=== PATIENT | female | born 1950 | race Two or more races ===

== ENCOUNTER → 2018-12-21 | Emergency (ER) | payer OTHER ==
[~2018-12-21] VITALS: Ht 180.3 cm; Wt 67.6 kg
[~2018-12-21] MED LIST: IV NS 0.9% 500 ML BAG IV ONE
--- NOTE | 2018-12-21 18:05 | NUR ---
PT LYNNE FROM GEN WEAKNESS, SOB WHILE DRIVING; PT AAOX4, -SOB, NAD NOTED, PT TO BED 5, VSS, PENDING MD ODELL
[2018-12-21 18:36] LABS: BASOPHILS % (AUTO) 0.4 % (0.0-2.0); EOSINOPHILS % (AUTO) 3.5 % (0.0-6.0); HEMATOCRIT 36 % (33-45); HEMOGLOBIN 12.3 g/dL (11.5-14.8); LYMPHOCYTES # (AUTO) 3.2 /CMM (0.8-4.8); LYMPHOCYTES % (AUTO) 41.6 % (20.0-44.0); MEAN CORPUSCULAR HGB CONC 35 g/dl (31.0-36.0); MEAN CORPUSCULAR VOLUME 96 fL (82-100); MONOCYTES # (AUTO) 0.4 /CMM (0.1-1.30); MONOCYTES % (AUTO) 4.8 % (2.0-12.0); NEUTROPHILS # (AUTO) 3.9 /CMM (1.8-8.9); NEUTROPHILS % (AUTO) 49.7 % (43.0-81.0); PLATELET COUNT (AUTO) 303 /CMM (150-450); RED BLOOD CELL COUNT(AUTO) 3.72 MIL/uL (4.0-5.2); WHITE BLOOD COUNT (AUTO) 7.8 K/uL (4.3-11.0)
[2018-12-21 18:50] LABS: CALCIUM, SERUM 9.1 mg/dL (8.5-10.1); CARBON DIOXIDE 27 mmol/L (21-32); CHLORIDE 105 mmol/L (98-107); CREATININE 0.7 mg/dL (0.6-1.3); GLUCOSE 97 mg/dL (74-106); POTASSIUM 3.8 mmol/L (3.5-5.1); SODIUM SERUM 140 mmol/L (136-145); UREA NITROGEN, BLOOD 16 mg/dL (7-18)
--- NOTE | 2018-12-21 19:07 | NUR ---
PT REFUSING TO HAVE CAT SCAN; DR. ALMANZAR MADE AWARE.
--- NOTE | 2018-12-21 20:08 | NUR ---
Patient discharged to home in stable condition. Written and verbal after care instructions given. Patient verbalizes understanding of instruction. IV removed. Catheter intact and site benign. Pressure and 4x4 applied to site. No bleeding noted.
[2018-12-21 20:09] VITALS: BP 110/65
--- NOTE | 2018-12-21 20:10 | NUR ---
UNABLE TO DEPART PATIENT FROM [facility] AT THIS TIME
== END | disposition home or self-care (01) ==
LOC: EDBD 18:07 → ER 18:07
DX: R53.1 Weakness (principal); R20.2 Paresthesia of skin; F41.9 Anxiety disorder, unspecified
CPT/HCPCS: 36415; 80048-TC; 84484-TC; 85025-TC